=== PATIENT | male | born 1945 | race Hispanic/Latino ===

== ENCOUNTER → 2018-01-28 | Outpatient (REF) | payer MEDICARE ==
[~2018-01-28] MED LIST: ASPIRIN LOW81 M1 PO; CIPRO XR500 M2 PO; CIPROFLOXACN500 MG PO; DILAUDID 2MG2 MG/TA1 PO; FLOMAX0.4 M1 PO; GLIPIZIDE ER5 MG PO; LISINOP/HCTZ1 TAB PO; METFORMIN1000 MG PO; METFORMIN500 MG PO; NIZORAL2 % EX; PRAVACHOL10 MG PO; PRAVASTATIN SOD20 MG PO; PRAVASTATIN10 MG PO
[2018-01-28 09:38] LABS: HEMATOCRIT 44.9 % (39.0-50.0); HEMOGLOBIN 15.8 g/dl (14.0-18.0); IMMATURE GRANULOCYTES 0.2 % (0.0-5.0); MEAN CELL VOLUME 94.5 fL CALC (80.0-100.0); MEAN CORPUSCULAR HGB 33.3 pG CALC (26.0-32.0); MEAN CORPUSCULAR HGB CONC 35.2 g/L CALC (32.0-36.0); NEUT# 2.41 thou/uL (1.82-7.42); RED BLOOD COUNT 4.75 mill/uL (4.70-6.10)
[2018-01-28 10:02] LABS: ALBUMIN 3.4 g/dL (3.2-5.0); ALKALINE PHOSPHATASE 210 u/l (38-126); ANION GAP 12 (6-22 (CALC)); BILIRUBIN, TOTAL 2.2 mg/dL (0.0-1.4); BUN 11 mg/dL (8-23); BUN/CREATININE RATIO 15 (12-20 (CALC)); CALCULATED LDLCHOLESTEROL 109 mg/dL (62-129 (CALC)); CARBON DIOXIDE 25 mmol/l (22-30); CHLORIDE 107 mmol/l (95-108); CHOLESTEROL HDL RATIO 3.1 (<4.4 (CALC)); CREATININE 0.7 mg/dL (0.7-1.3); GFR > 60 ML/MIN (>=60 (CALC)); GFR FOR AFR.AMER. > 60 ML/MIN (>=60 (CALC)); HDL CHOLESTEROL 68 mg/dL (>=40); POTASSIUM 4.2 mmol/l (3.5-5.1); SGOT/AST 82 u/l (19-48); SODIUM 140 mmol/l (137-146); TOTAL CHOLESTEROL 210 mg/dl (0-199); TOTAL PROTEIN 7.5 g/dL (6.3-8.2); TOTAL TRIGLYCERIDES 164 mg/dl (30-149); VLDL CHOLESTROL 33 mg/dl (0-38 (CALC))
== END | disposition home or self-care (01) ==
LOC: LAB 08:17
PROVIDERS: ATTEND Internal Medicine Geriatric Medicine
DX: E11.9 Type 2 diabetes mellitus without complications (principal)

== ENCOUNTER 2018-09-29 08:18 | Day surgery (SDC) | payer MEDICARE ==
[~2018-09-29] VITALS: Ht 165.1 cm; Wt 87.1 kg
[~2018-09-29 08:18] MED LIST changes: +GLIPIZIDE10 MG PO; +JANUVIA50 MG PO; +PRANDIN1 MG PO
[2018-09-29 10:03] VITALS: BP 143/78
== END 2018-09-29 10:13 | disposition home or self-care (01) ==
LOC: ENDO 08:18
PROVIDERS: ATTEND Internal Medicine Gastroenterology
PROC: 06L38CZ Occlusion of Esophageal Vein with Extraluminal Device, Via Natural or Artificial Opening Endoscopic (ICD-10-PCS; principal; 2018-09-29)
DX: K70.30 Alcoholic cirrhosis of liver without ascites (principal); I85.10 Secondary esophageal varices without bleeding; K22.70 Barrett's esophagus without dysplasia; K29.70 Gastritis, unspecified, without bleeding; K76.6 Portal hypertension; K31.89 Other diseases of stomach and duodenum; F10.10 Alcohol abuse, uncomplicated; I10 Essential (primary) hypertension; E11.9 Type 2 diabetes mellitus without complications; Z20.5 Contact with and (suspected) exposure to viral hepatitis

== ENCOUNTER 2019-03-30 10:23 | Day surgery (SDC) | payer MEDICARE ==
[~2019-03-30] VITALS: Ht 165.1 cm; Wt 88.5 kg
[2019-03-30 12:53] VITALS: BP 164/88
== END 2019-03-30 13:15 | disposition home or self-care (01) ==
LOC: ENDO 10:23 → ORM 12:50 → ENDO 12:50 → ORM 16:15
PROVIDERS: ATTEND Internal Medicine Gastroenterology
PROC: 06L38CZ Occlusion of Esophageal Vein with Extraluminal Device, Via Natural or Artificial Opening Endoscopic (ICD-10-PCS; principal; 2019-03-30)
DX: K74.60 Unspecified cirrhosis of liver (principal); I85.10 Secondary esophageal varices without bleeding; K29.70 Gastritis, unspecified, without bleeding; K25.9 Gastric ulcer, unspecified as acute or chronic, without hemorrhage or perforation; K76.6 Portal hypertension; K31.89 Other diseases of stomach and duodenum; K29.80 Duodenitis without bleeding; D69.6 Thrombocytopenia, unspecified; I10 Essential (primary) hypertension; E11.9 Type 2 diabetes mellitus without complications; Z79.84 Long term (current) use of oral hypoglycemic drugs